=== PATIENT | female | born 1945 | race Caucasian/White ===

== ENCOUNTER 2018-10-13 12:17 | Inpatient (IN) | payer MEDICARE, BC ==
[~2018-10-13] VITALS: Ht 152.4 cm; Wt 66.0 kg
[2018-10-16 08:00] VITALS: BP 116/78
== END 2018-10-16 11:00 | disposition home or self-care (01) | DRG 311 ==
LOC: ED 13:09 → EDIP 15:42 → 5SO 15:48 → DCLOUNGE 10-16 10:39
PROVIDERS: ADMIT Family Medicine; ATTEND Family Medicine
DX: I24.8 Other forms of acute ischemic heart disease (principal); I47.1 Supraventricular tachycardia; I08.0 Rheumatic disorders of both mitral and aortic valves; I49.5 Sick sinus syndrome; F02.80 Dementia in other diseases classified elsewhere, unspecified severity, without behavioral disturbance, psychotic disturbance, mood disturbance, and anxiety; E78.5 Hyperlipidemia, unspecified; I50.9 Heart failure, unspecified; G30.9 Alzheimer's disease, unspecified; I11.0 Hypertensive heart disease with heart failure; I25.2 Old myocardial infarction; Z87.891 Personal history of nicotine dependence; Z79.899 Other long term (current) drug therapy
CPT/HCPCS: 36415; 78452; 80053; 80061; 83735; 84439; 84443; 84484; 85025; 93005; 93017; 93306; 99285; G0378; J1650; J2785; A9502; J0360; J1630; J2060; J7030